=== PATIENT | female | born 1990 | race Caucasian/White ===

== ENCOUNTER 2021-11-10 14:13 | Emergency (ER) | payer SELFPAY ==
[2021-11-10 14:28] VITALS: BP 111/72; PULSE 87; RESP 16; TEMP 36.8; O2SAT 96; BMI 23.1
--- NOTE | 2021-11-10 14:46 | W.ED.FEMALGU ---
HPI - Female Genitourinary General: Chief complaint: OB/Uterine Contractions Stated complaint: positive preg test history of tubal Time Seen by Provider: 11/10/21 14:38 Source: patient Mode of arrival: ambulatory Limitations: no limitations History of Present Illness: HPI Narrative: Patient is a 31-year-old female who presents to ED today with a complaint of lower pelvic pains intermittently over the past 2 months. Patient states pain seems to always be minimally present with intermittent exacerbations. Pain seems to alternate between left and right sides. Patient states she had an abnormal period last month stating she only bled for 1.5 days. Patient states she was approximately a week late on her period this month. She states she took a test 2 days ago and it was positive. Patient began bleeding today. Patient has a history of a tubal ligation so was concerned for ectopic. No nausea, vomiting. Normal bowel movements. No urinary complaints. She has no complaints of vaginal discharge. Onset (ago): month(s) Consistency: intermittent Vaginal discharge: none Associated symptoms: Deny abdominal pain, headache(s), nausea or vaginal discharge Sexual activity: Yes Possible : at home test positive Review of Systems Const: Denies: fever(s), chills, body aches, fatigue or malaise Card: Denies: chest pain Resp: Denies: dyspnea GI: Denies: abdominal pain, nausea, vomiting or diarrhea : Reports: vaginal bleeding, irregular period, metrorrhagia and pelvic pain; Denies: flank pain, dysuria, hematuria, vaginal odor or vaginal discharge Musc: Denies: back pain Skin/Breast: Denies: rash Neuro: Denies: headache(s) or dizziness Physical Exam Const: COMMON NORMALS: no acute distress, average body habitus, patient oriented x3, no limitations, healthy appearing, alert and well nourished GENERAL APPEARANCE: cooperative Resp: COMMON NORMALS: normal respiratory effort and clear to auscultation bilaterally AUSCULTATION: clear to auscultation bilaterally Cardio: COMMON NORMALS: regular rate and regular rhythm RATE: regular rate RHYTHM: regular rhythm GI: COMMON NORMALS: Normal to inspection, nondistended, normoactive bowel sounds present, Soft to palpation, No hepatosplenomegaly present and no masses PALPATION: Yes Soft to palpation, Yes Tenderness to palpation present (GI) (mild pain to lower abdomen/pelvis) and Yes No hepatosplenomegaly present : COMMON NORMALS: Yes no CVA tenderness BLADDER/KIDNEY EXAM: Yes no CVA tenderness OB/EXTERNAL & SPECULUM: Deferred OB/external & speculum exam Back/Pelvis: COMMON NORMALS: no CVA tenderness Extremity: COMMON NORMALS: normal to inspection Neuro: COMMON NORMALS: patient oriented x3 SENSORIUM/ORIENTATION: Yes alert Skin: COMMON NORMALS: no rashes or lesions noted GENERAL SKIN EXAM: no rashes or lesions noted Course Vital Signs: Vital signs: Vital Signs Temperature 98.2 F 11/10/21 14:28 Pulse Rate 87 11/10/21 14:28 Respiratory Rate 16 11/10/21 14:28 Blood Pressure 111/72 11/10/21 14:28 Pulse Oximetry 96 11/10/21 14:28 MDM - Female MDM Narrative: Medical decision making narrative: Patient has a serum quant of <0.5. Remainder of labs normal. Her pelvic TV US is normal. At this time I would get her set up with PCP for further evaluation and possible referral to [facility] if necessary. Strict return to ED precautions verbally given to patient. Lab Data: Labs: Lab Results 11/10/21 11/10/21 14:55 14:55 WBC 8.0 10^3/uL 10^3/ uL (4.0-10.0) RBC 4.96 10^6/uL 10^6 /uL (4.1-5.3) Hgb 14.1 g/dL g/dL (11.5-15.3) Hct 42.3 % % (37.0-47.0) MCV 85.3 fl fl (81-99) MCH 28.4 pg pg (28.0-34.0) MCHC 33.3 g/dL g/dL (30.0-36.0) RDW 13.3 % % (12.1-15.1) Plt Count 291 10^3/cmm 10^3 /cmm (130-400) MPV 9.7 fL fL (7.4-10.4) Neut % (Auto) 73.0 % % Lymph % (Auto) 20.0 % % [place] % (Auto) 5.6 % % Eos % (Auto) 0.7 % % Baso % (Auto) 0.5 % % Neut # (Auto) 5.84 10^3/uL 10^3 /uL (1.8-7.7) Lymph # (Auto) 1.6 10^3/uL 10^3/ uL (0.8-4.8) [place] # (Auto) 0.5 10^3/uL 10^3/ uL (0.2-0.9) Eos # (Auto) 0.1 10^3/uL 10^3/ uL (0.0-0.8) Baso # (Auto) 0.0 10^3/uL 10^3/ uL (0.0-0.1) Nucleated RBC % (a uto) 0 % % Nucleated RBCs # 0.0 /100WBC /100W BC Sodium 136 mmol/L mmol/L (136-145) Potassium 3.7 mmol/L mmol/L (3.5-5.1) Chloride 102 mmol/L mmol/L (98-107) Carbon Dioxide 22 mmol/L mmol/L (22-29) Anion Gap 15.7 (5-19) BUN 8 mg/dL mg/dL (6-20) Creatinine 0.6 mg/dL mg/dL (0.5-0.9) GFR Calculation 118.2 mL/min mL/m in (90-130) Glucose 85 mg/dL mg/dL (65-115) Calculated Osmolal ity 280 mOsm/kg L mOs m/kg (285-295) Calcium 9.2 mg/dL mg/dL (8.5-10.5) Total Bilirubin 0.2 mg/dL mg/dL (0.15-1.2) AST 12 U/L U/L (0-32) ALT 9 U/L U/L (0-33) Alkaline Phosphata se 62 IU/L IU/L (35-105) Total Protein 6.8 g/dL g/dL (6.6-8.7) Albumin 4.6 g/dL g/dL (3.5-5.2) Globulin 2.2 g/dL g/dL (1.3-4.6) Ser , Day i-Qnt < 0.50 mIU/mL mIU /mL Imaging Data: US TV: Radiologist's impression: [id number] [address] Ultrasound Report Signed Patient: Magnolia Leggett Unit #: [id number] : 1990 Age/Sex: 31 / F ADM Date: 11/10/21 Loc: ER Room/Bed: Attending Dr: Ordering Provider/Ordering MD: Macrina Darling Date of Service: 11/10/21 Procedure(s): US transvaginal [id number] Accession Number(s): [id number] Report Number: [id number] WS: [id number] TRANSVAGINAL PELVIC ULTRASOUND HISTORY: pelvic pain, abnormal bleeding COMPARISON: None available. Uterus: 6.8 cm x 4.1 cm x 3.7 cm. Normal size retroverted uterus. Normal homogeneity throughout the myometrium. Cervix is closed. Endometrium: 0.4 cm. Normal homogeneity. No increased vascularity. No mass. Right ovary: 2.7 cm x 1.5 cm x 1.2 cm. Normal size and vascularity, no cystic or solid masses. Left ovary: 2.2 cm x 1.1 cm x 1.0 cm. Normal size and vascularity, no cystic or solid masses. Physiologic free fluid. US/US transvaginal [id number] IMPRESSION: 1. Normal transvaginal pelvic ultrasound. 2. Patient states recent positive home test. If there is a positive test ectopic is not excluded. Dictated By: Lyric Masterson DO Signed By: Lyric Masterson DO Signed Date/Time: 11/10/21 1600 DD/ 1558 Discharge Plan Discharge Patient Disposition: Home Clinical Impression: Pelvic pain Condition: Stable Discharge Orders: Discharge ED (Routine); Ordered 11/10/21 Ordered By: Macrina Darling Patient Instructions: Pelvic Pain in Women (ED), Pelvic Pain (ED) Coding Level of Care Code ED Automatic Presser for Chg Fwd Exam Detailed
[2021-11-10 15:04] LABS: Basophils % 0.5 %; Eosinophils # 0.1 10^3/uL (0.0-0.8); Eosinophils % 0.7 %; Hematocrit 42.3 % (37.0-47.0); Hemoglobin 14.1 g/dL (11.5-15.3); Lymphocytes # 1.6 10^3/uL (0.8-4.8); Mean Corpuscular HGB Conc 33.3 g/dL (30.0-36.0); Mean Corpuscular Hemoglobin 28.4 pg (28.0-34.0); Mean Corpuscular Volume 85.3 fl (81-99); Mean Platelet Volume 9.7 fL (7.4-10.4); Monocytes # 0.5 10^3/uL (0.2-0.9); Monocytes % 5.6 %; Neutrophils # 5.84 10^3/uL (1.8-7.7); Nucleated Red Blood Cells % 0 %; Platelet Count 291 10^3/cmm (130-400); Red Blood Count 4.96 10^6/uL (4.1-5.3); Red Cell Distribution Width 13.3 % (12.1-15.1)
--- NOTE | 2021-11-10 15:27 | US_ITS ---
WS: [id number] TRANSVAGINAL PELVIC ULTRASOUND HISTORY: pelvic pain, abnormal bleeding COMPARISON: None available. Uterus: 6.8 cm x 4.1 cm x 3.7 cm. Normal size retroverted uterus. Normal homogeneity throughout the m yometrium. Cervix is closed. Endometrium: 0.4 cm. Normal homogeneity. No increased vascularity. No mass. Right ovary: 2.7 cm x 1.5 cm x 1.2 cm. Normal size and vascularity, no cystic or solid masses. Left ovary: 2.2 cm x 1.1 cm x 1.0 cm. Normal size and vascularity, no cystic or solid masses. Physiologic free fluid. US/US transvaginal [id number] IMPRESSION: 1. Normal transvaginal pelvic ultrasound. 2. Patient states recent positive home test. If there is a positive test ectopic is not excluded.
[2021-11-10 15:36] LABS: Alanine Aminotransferase 9 U/L (0-33); Albumin Level 4.6 g/dL (3.5-5.2); Alkaline Phosphatase 62 IU/L (35-105); Anion Gap 15.7 (5-19); Aspartate Amino Transferase 12 U/L (0-32); Blood Urea Nitrogen 8 mg/dL (6-20); Calcium 9.2 mg/dL (8.5-10.5); Carbon Dioxide 22 mmol/L (22-29); Chloride 102 mmol/L (98-107); Globulin 2.2 g/dL (1.3-4.6); Glomerular Filtration Rate 118.2 mL/min (90-130); Glucose 85 mg/dL (65-115); Osmolality Calculated 280 mOsm/kg (285-295); Potassium 3.7 mmol/L (3.5-5.1); Sodium 136 mmol/L (136-145); Total Bilirubin 0.2 mg/dL (0.15-1.2); Total Protein 6.8 g/dL (6.6-8.7)
[2021-11-10 15:40] LABS: HCG Quantitative < 0.50 mIU/mL
[2021-11-10] MEDS: sodium chloride 0.9% 1,000 ML 999 ML IV (16:07)
--- NOTE | 2021-11-16 11:24 | DCPLANNER ---
Addendum entered by Rosa Davidson 11/16/21 11:32: Patient called director of casework back, she stated that she has a primary care physician. Original Note: dairy farm manager had message to speak with patient about getting a primary care physician. dairy farm manager called phone number [phone], unable to speak with patient or leave a voicemail for patient at this time.
== END 2021-11-10 17:30 | disposition home or self-care (01) ==
PROVIDERS: Emergency Provider Physician Assistant
DX: R10.2 Pelvic and perineal pain (principal)
CPT/HCPCS: 76830; 80053; 84702; 85025; 96360; 99283; J7030

== ENCOUNTER → 2022-09-24 10:02 | Outpatient (BNVA) | payer OTHER, SELFPAY | PROVIDERS: Referring Provider Nurse Practitioner; Visit Provider Student in an Organized Health Care Education/Training Program | DX: S60.221A Contusion of right hand, initial encounter (principal); S60.021A Contusion of right index finger without damage to nail, initial encounter; W30.89XA Contact with other specified agricultural machinery, initial encounter; S60.031A Contusion of right middle finger without damage to nail, initial encounter | CPT/HCPCS: 73130 ==

== ENCOUNTER 2022-11-30 08:27 | Outpatient (CLI) | payer OTHER, SELFPAY ==
--- NOTE | 2022-11-30 08:45 | MR_ITS ---
WS: [id number] MRI RIGHT HAND without CONTRAST. COMPARISON: RIGHT hand radiograph 09/24/2022 Multiplanar, multisequence imaging is performed without contrast. No marrow edema or fracture. Normal interphalangeal joint space alignment. The extensor and flexor te ndon sheaths appear normal. No displacement of the flor system. No soft tissue abnormalities. No er osions. MR/MR hand RT wo con* [id number] IMPRESSION: Unremarkable MRI RIGHT hand.
== END 2022-11-30 08:28 | disposition home or self-care (01) ==
PROVIDERS: Visit Provider Student in an Organized Health Care Education/Training Program
DX: S60.00XA Contusion of unspecified finger without damage to nail, initial encounter (principal); S60.221A Contusion of right hand, initial encounter; X58.XXXA Exposure to other specified factors, initial encounter
CPT/HCPCS: 73218

== ENCOUNTER 2024-10-06 12:36 | Observation (INO) | payer BC, MEDICAID, SELFPAY ==
[2024-10-06] VITALS (17 sets, daily range): BP systolic 100–125; BP diastolic 64–88; PULSE 77–109; RESP 14–25; TEMP 36.7; O2SAT 93–100; BMI 27.9; BMI 25.3
--- NOTE | 2024-10-06 12:55 | XRR_ITS ---
PROCEDURE INFORMATION: Exam: XR Chest Exam date and time: 10/06/2024 1:03 PM Age: 34 years old Clinical indication: Cough and dyspnea; Additional info: Dyspnea/cough TECHNIQUE: Imaging protocol: Radiologic exam of the chest. Views: 1 view. COMPARISON: No relevant prior studies available. FINDINGS: Lungs: Questionable azygos lobe. No consolidations. Pleural spaces: Unremarkable. No pleural effusion. No pneumothorax. Heart/Mediastinum: Unremarkable. No cardiomegaly. Bones/joints: Unremarkable. XR/XR chest 1V portable [id number] IMPRESSION: No acute findings.
--- NOTE | 2024-10-06 12:56 | ECG_ITS ---
[facility] Test Date: 2024-10-06 Pat Name: Magnolia Moss Department: Room: Gender: Female Tube Cleaner: : 1990 Requested By: Haider Xavier Order Number: [id number] Bobby MD: Dwight Hastings M.D. Measurements Intervals [place] Rate: 114 P: 80 IL: 159 QRS: 72 QRSD: 81 T: 66 QT: 323 QTc: 446 Interpretive Statements SINUS TACHYCARDIA POSSIBLE LEFT ATRIAL ENLARGEMENT [-0.1mV P-WAVE IN V1/V2] POSSIBLE RIGHT VENTRICULAR CONDUCTION DELAY [RSR (QR) IN V1/V2] NONSPECIFIC T-WAVE ABNORMALITY No previous ECG available for comparison Electronically Signed On 10-06-2024 15:09:14 HOE RUNNER by Dwight Hastings M.D. [email or web address]
--- NOTE | 2024-10-06 13:13 | CT_ITS ---
WS: [id number] CT scan of the abdomen and pelvis with IV contrast. Additional two-dimensional coronal and sagittal reconstruction was performed. 10/06/2024 Clinical Data: abd pain Comparison: None. DLP: 457.[address] scans at [facility] use at least one of these dose optimization techniques: automated e xposure control; mA and/or kV adjustment per patient size (includes targeted exams where dose is matc hed to clinical indication); or iterative reconstruction. Findings: The lower lungs show no nodules, masses or effusions. The liver, gallbladder, adrenal glands and pancreas are normal. There is minimal fluid adjacent to th e spleen but no intrasplenic laceration or mass is seen. On the posterior lateral aspect of the right kidney there is an area of decreased perfusion which could be result of an injury or even a minimal infection. The kidneys show equal bilateral contrast excretion with no cyst or masses. The abdominal aorta is normal in size. No appendicitis or diverticulitis is seen. The stomach, small bowel and colon are normal. The bladder is unremarkable. The uterus is normal. No inguinal hernia is seen. The bones of the lower thorax, lumbar spine, pelvis, and hips are normal. CT/CT abdomen pelvis w con* [id number] Impression: 1. Minimal perisplenic fluid which may be result of prior minimal injury. 2. Small area of decreased perfusion posterior lateral aspect of the right kidn ey which could be from a injury or minimal infection.
--- NOTE | 2024-10-06 13:17 | W.ED.ABDPA2 ---
HPI - Abdominal Pain General: Chief Complaint: Abdominal Pain Stated Complaint: chest pain Time Seen by Provider: 10/06/24 12:58 History of Present Illness: 34-year-old female presents emergency room complaining epigastric and left upper quadrant abdominal pain. Patient has had increasing pain for last 3 days worse when she takes a deep breath. She drinks 5-6 beers per day and will occasionally drink hard liquor. She denies any hematuria dysuria urgency or frequency. No history of any nephrolithiasis. No actual flank pain. She denies fever sweats or chills. States this pain feels similar to what she has had before with pancreatitis. She states she frequently vomits mucousy maroonish type fluids. She has not had any coffee-ground emesis. She has never had any known upper GI bleeds or needed transfusion. Associated Symptoms: Reports nausea and vomiting; Denies chills, dysuria and fever(s) Related Data Home Medications Medication Instructions Recorded Confirmed ascorbic acid (vitamin C) 1,000 mg 1,000 mg PO DAILY 10/06/24 10/06/24 tablet (Vitamin C) ibuprofen 125 mg-acetaminophen 250 2 tab PO TID PRN Pain 10/06/24 10/06/24 mg tablet (Advil Dual Action) multivitamin 1 tab PO DAILY 10/06/24 10/06/24 Allergies Allergy/AdvReac Type Severity Reaction Status Date / Time No Known Allergies Allergy Verified 10/06/24 12:50 Review of Systems Const: Denies: fever(s) or chills Card: Denies: chest pain Resp: Denies: dyspnea GI: Reports: abdominal pain, nausea and vomiting : Denies: dysuria, urinary frequency or urinary urgency Musc: Denies: neck pain or back pain Skin/Breast: Denies: rash [facility] PFSH: Medical History Contusion of right hand including fingers Physical Exam Const: GENERAL APPEARANCE: cooperative ORIENTATION/CONSCIOUSNESS: Yes awake, Yes oriented to person, Yes oriented to place and Yes oriented to time HENMT: COMMON NORMALS: normocephalic, atraumatic and hearing grossly normal bilaterally HEAD & SCALP: normocephalic and atraumatic Resp: COMMON NORMALS: normal respiratory effort, No retractions, No use of accessory muscles and clear to auscultation bilaterally AUSCULTATION: clear to auscultation bilaterally Cardio: COMMON NORMALS: regular rate, regular rhythm and No murmurs present (Cardio) RATE: regular rate RHYTHM: regular rhythm GI: AUSCULTATION: Yes normoactive bowel sounds PALPATION: Yes Tenderness to palpation present (GI) Details: LUQ and No Guarding due to palpation present (GI) RECTAL EXAM: heme negative stool : COMMON NORMALS: Yes no CVA tenderness BLADDER/KIDNEY EXAM: Yes no CVA tenderness Back/Pelvis: COMMON NORMALS: no CVA tenderness Extremity: COMMON NORMALS: normal to inspection, capillary refill normal, no clubbing, cyanosis or edema, no calf tenderness and no pedal edema Neuro: SENSORIUM/ORIENTATION: Yes oriented to person, Yes oriented to place and Yes oriented to time Skin: COMMON NORMALS: no rashes or lesions noted GENERAL SKIN EXAM: no rashes or lesions noted Course Vital Signs: Vital signs: Vital Signs Temperature 98.1 F 10/06/24 12:50 Pulse Rate 87 10/06/24 16:00 Respiratory Rate 20 H 10/06/24 16:16 Blood Pressure 100/64 10/06/24 16:00 Pulse Oximetry 99 10/06/24 16:16 Oxygen Delivery Me thod Room Air 10/06/24 16:00 MDM - Abdominal Pain Medical Decision Making Patient has left upper quadrant abdominal pain lipase slightly elevated. Suspect she has a alcoholic pancreatitis as well as alcoholic gastritis she is reporting vomiting maroonish colored fluid although her BUN is normal. Rectal exam stool was Hemoccult negative. Medical Records I reviewed the patient's medical records. Lab Data I reviewed the patient's lab results. 10/06/24 13:19 10/06/24 14:05 Labs/Radiology: Radiology Impressions Chest X-Ray 10/06/24 12:55 IMPRESSION: No acute findings. Abdomen/Pelvis CT 10/06/24 13:13 Impression: 1. Minimal perisplenic fluid which may be result of prior minimal injury. 2. Small area of decreased perfusion posterior lateral aspect of the right kidney which could be from a injury or minimal infection. Laboratory Results WBC 11.50 10^3/uL (3.29-11.43) H 10/06/24 13:19 RBC 4.43 10^6/uL (3.85-5.65) 10/06/24 13:19 Hgb 13.70 g/dL (11.27-16.99) 10/06/24 13:19 Hct 41.5 % (36-47) 10/06/24 13:19 MCV 93.7 fl (85-98) 10/06/24 13:19 MCH 30.9 pg (27-33) 10/06/24 13:19 MCHC 33.0 g/dL (30-55) 10/06/24 13:19 RDW 12.4 % (12.1-15.1) 10/06/24 13:19 Plt Count 235 10^3/cmm (157-399) 10/06/24 13:19 MPV 9.8 fL (7.4-10.4) 10/06/24 13:19 Neut % (Auto) 83.1 % 10/06/24 13:19 Lymph % (Auto) 11.5 % 10/06/24 13:19 [place] % (Auto) 4.2 % 10/06/24 13:19 Eos % (Auto) 0.5 % 10/06/24 13:19 Baso % (Auto) 0.3 % 10/06/24 13:19 Neut # (Auto) 9.56 10^3/uL (1.8-7.7) H 10/06/24 13:19 Lymph # (Auto) 1.3 10^3/uL (0.8-4.8) 10/06/24 13:19 [place] # (Auto) 0.5 10^3/uL (0.2-0.9) 10/06/24 13:19 Eos # (Auto) 0.1 10^3/uL (0.0-0.8) 10/06/24 13:19 Baso # (Auto) 0.0 10^3/uL (0.0-0.1) 10/06/24 13:19 Nucleated RBC % (auto) 0 % 10/06/24 13:19 Nucleated RBCs # 0.0 /100WBC 10/06/24 13:19 PT 12.80 SECONDS (12.1-14.9) 10/06/24 13:19 INR 0.93 (0.8-1.2) 10/06/24 13:19 APTT 27.3 SECONDS (23.9-36.7) 10/06/24 13:19 Sodium 137 mmol/L (136-145) 10/06/24 14:05 Potassium 3.4 mmol/L (3.5-5.1) L 10/06/24 14:05 Chloride 101 mmol/L (98-107) 10/06/24 14:05 Carbon Dioxide 23 mmol/L (22-29) 10/06/24 14:05 Anion Gap 16.4 (5-19) 10/06/24 14:05 BUN 3 mg/dL (6-20) L 10/06/24 14:05 Creatinine 0.4 mg/dL (0.5-0.9) L 10/06/24 14:05 GFR Calculation 185.0 mL/min (90-130) H 10/06/24 14:05 Glucose 101 mg/dL (65-115) 10/06/24 14:05 Calculated Osmolality 281 mOsm/kg (285-295) L 10/06/24 14:05 Calcium 8.4 mg/dL (8.5-10.5) L 10/06/24 14:05 Total Bilirubin 0.2 mg/dL (0.15-1.2) 10/06/24 14:05 AST 12 U/L (0-32) 10/06/24 14:05 ALT 11 U/L (0-33) 10/06/24 14:05 Alkaline Phosphatase 82 U/L (35-105) 10/06/24 14:05 Total Protein 6.8 g/dL (6.6-8.7) 10/06/24 14:05 Albumin 4.1 g/dL (3.5-5.2) 10/06/24 14:05 Globulin 2.7 g/dL (1.3-4.6) 10/06/24 14:05 Lipase 79 U/L (13-60) H 10/06/24 14:05 Urine Color Yellow (Yellow) 10/06/24 15:18 Urine Appearance Clear (CLEAR) 10/06/24 15:18 Urine pH 7.5 (5-7) 10/06/24 15:18 Ur Specific [place] 1.043 (1.005-1.030) H 10/06/24 15:18 Urine Protein Negative (Negative) 10/06/24 15:18 Urine Glucose (UA) Negative (Normal) 10/06/24 15:18 Urine Ketones Negative (Negative) 10/06/24 15:18 Urine Blood Negative (Negative) 10/06/24 15:18 Urine Nitrate Negative (Negative) 10/06/24 15:18 Urine Bilirubin Negative (Negative) 10/06/24 15:18 Urine Urobilinogen 0.2 mg/dL (Negative) 10/06/24 15:18 Ur Leukocyte Esterase Negative (Negative) 10/06/24 15:18 Urine RBC 0-2 /hpf (0-2) 10/06/24 15:18 Urine WBC 0-5 /hpf (0-5) 10/06/24 15:18 Ur Squamous Epith Cells 0-5 /hpf (0-5) 10/06/24 15:18 Amorphous Sediment Not Reportable 10/06/24 15:18 Urine Bacteria None seen /hpf (NONE) 10/06/24 15:18 Hyaline Casts 0-4 /lpf H 10/06/24 15:18 All radiology interpretation(s) finalized by discharge Discharge Plan Discharge Patient Disposition: Placed in Observation Clinical Impression: Pancreatitis, Acute alcoholic gastritis Coding Level of Care Code ED Promotion Specialist for Ezekiel Swain
[2024-10-06 13:25] LABS: Basophils % 0.3 %; Eosinophils # 0.1 10^3/uL (0.0-0.8); Eosinophils % 0.5 %; Hematocrit 41.5 % (36-47); Lymphocytes # 1.3 10^3/uL (0.8-4.8); Lymphocytes % 11.5 %; Mean Corpuscular Hemoglobin 30.9 pg (27-33); Mean Corpuscular Volume 93.7 fl (85-98); Mean Platelet Volume 9.8 fL (7.4-10.4); Monocytes # 0.5 10^3/uL (0.2-0.9); Monocytes % 4.2 %; Neutrophils # 9.56 10^3/uL (1.8-7.7); Neutrophils % 83.1 %; Nucleated Red Blood Cells % 0 %; Platelet Count 235 10^3/cmm (157-399); Red Blood Count 4.43 10^6/uL (3.85-5.65); Red Cell Distribution Width 12.4 % (12.1-15.1)
[2024-10-06] MEDS: iohexol 350 mg/mL 500 mL Btl (per mL) IV (13:26)
[2024-10-06] MEDS: ondansetron 2 mg/ML SDV 2 mL 4 MG IVP (13:40)
[2024-10-06] MEDS: morphine 4 mg/mL SDV 1 mL IVP ×3 (13:40→19:48)
[2024-10-06] MEDS: pantoprazole 40 mg SDV 80 MG IVP (13:41)
[2024-10-06] MEDS: sodium chloride 0.9% 1,000 ML 999 ML IV (13:41)
[2024-10-06 13:42] LABS: INR 0.93 (0.8-1.2)
[2024-10-06 13:43] LABS: Partial Thromboplastin Time 27.3 SECONDS (23.9-36.7)
[2024-10-06 14:30] LABS: Alanine Aminotransferase 11 U/L (0-33); Albumin Level 4.1 g/dL (3.5-5.2); Alkaline Phosphatase 82 U/L (35-105); Anion Gap 16.4 (5-19); Aspartate Amino Transferase 12 U/L (0-32); Blood Urea Nitrogen 3 mg/dL (6-20); Calcium 8.4 mg/dL (8.5-10.5); Carbon Dioxide 23 mmol/L (22-29); Chloride 101 mmol/L (98-107); Creatinine Clr Calc Pharmacy 198.8822; Globulin 2.7 g/dL (1.3-4.6); Glucose 101 mg/dL (65-115); Lipase 79 U/L (13-60); Osmolality Calculated 281 mOsm/kg (285-295); Potassium 3.4 mmol/L (3.5-5.1); Sodium 137 mmol/L (136-145); Total Bilirubin 0.2 mg/dL (0.15-1.2); Total Protein 6.8 g/dL (6.6-8.7)
[2024-10-06 15:28] LABS: Bilirubin Urine Negative (Negative); Blood Urine Negative (Negative); Glucose Urine UA Negative (Normal); Ketones Urine Negative (Negative); Leukocyte Esterase Urine Negative (Negative); Nitrate Urine Negative (Negative); Protein Urine Negative (Negative); Urine Appearance Clear (CLEAR); Urine Color Yellow (Yellow); Urobilinogen Urine 0.2 mg/dL (Negative); pH Urine 7.5 (5-7)
[2024-10-06 15:31] LABS: Add Urine Microscopic? YES; Bacteria Urine None Seen /hpf; Hyaline Casts Urine 0-4 /lpf; RBC Urine 0-2 /hpf (0-2); Squamous Epithelial Cell Urine 0-5 /hpf (0-5); WBC Urine 0-5 /hpf (0-5)
[2024-10-06 15:35] LABS: Specific Gravity, Urine 1.043 (1.005-1.030)
--- NOTE | 2024-10-06 17:11 | CTR_ITS ---
PROCEDURE INFORMATION: Exam: CT Chest Without Contrast; Diagnostic Exam date and time: 10/06/2024 5:20 PM Age: 34 years old Clinical indication: Pain; Radiating; Additional info: Rule out contusion TECHNIQUE: Imaging protocol: Diagnostic computed tomography of the chest without contrast. Radiation optimization: All CT scans at this facility use at least one of these dose optimization techniques: automated exposure control; mA and/or kV adjustment per patient size (includes targeted exams where dose is matched to clinical indication); or iterative reconstruction. COMPARISON: CR XR chest 1V portable [id number] 10/06/2024 1:03 PM RADIATION DOSE METRICS: Total DLP (mGy-cm): 300.7 FINDINGS: Thyroid: No significant thyroid pathology. Lungs: No significant active pulmonary pathology. Pleural spaces: No pleural effusion. No pneumothorax. Heart: Unremarkable. No cardiomegaly. No pericardial effusion. Coronary arteries: No coronary artery calcification evident. Lymph nodes: No evidence of lymphadenopathy. Vasculature: Azygous variant is present extending through the right upper lobe. No evidence of thoracic aortic aneurysm. Pancreas: Incomplete imaging of the fat infiltration surrounding the pancreatic tail; see abdomen CT from earlier in the same day for further description. Bones/joints: No significant bony pathology. Soft tissues: Unremarkable. CT/CT chest wo con [id number] IMPRESSION: No acute thoracic traumatic pathology. See abdomen CT performed earlier on the same day for other findings.
--- NOTE | 2024-10-06 17:11 | CTR_ITS ---
PROCEDURE INFORMATION: Exam: CT Lumbar Spine Without Contrast Exam date and time: 10/06/2024 5:20 PM Age: 34 years old Clinical indication: Low back pain; Additional info: Back injury TECHNIQUE: Imaging protocol: Computed tomography of the lumbar spine without contrast. Radiation optimization: All CT scans at this facility use at least one of these dose optimization techniques: automated exposure control; mA and/or kV adjustment per patient size (includes targeted exams where dose is matched to clinical indication); or iterative reconstruction. COMPARISON: CT thoracic spin wo con* [id number] 10/06/2024 5:20 PM RADIATION DOSE METRICS: Total DLP (mGy-cm): 554.5 FINDINGS: Bones/joints: Alignment within normal limits. No acute fracture or dislocation. Vertebral body and intervertebral disc heights are maintained. Soft tissues: Unremarkable. Other findings: Incomplete imaging of the fat infiltration abutting the pancreatic tail; see abdomen CT performed the same day for further description. CT/CT lumbar spine wo con* [id number] IMPRESSION: No acute lumbar spine pathology.
--- NOTE | 2024-10-06 17:11 | CTR_ITS ---
PROCEDURE INFORMATION: Exam: CT Thoracic Spine Without Contrast Exam date and time: 10/06/2024 5:20 PM Age: 34 years old Clinical indication: Pain in thoracic spine; Other: All over; Additional info: Back injury TECHNIQUE: Imaging protocol: Computed tomography of the thoracic spine without contrast. Radiation optimization: All CT scans at this facility use at least one of these dose optimization techniques: automated exposure control; mA and/or kV adjustment per patient size (includes targeted exams where dose is matched to clinical indication); or iterative reconstruction. COMPARISON: CT chest wo con [id number] 10/06/2024 5:20 PM RADIATION DOSE METRICS: Total DLP (mGy-cm): 621.6 FINDINGS: Bones/joints: Minimal degenerative change of the thoracic spine. Mild dextrocurvature mid to upper thoracic spine; alignment otherwise unremarkable. No acute fracture or dislocation. Soft tissues: Unremarkable. Pancreas: Incomplete imaging of fat infiltration surrounding pancreatic tail; see CT abdomen performed the same day for further description. Other findings: See accompanying chest CT for description other thoracic anatomy. CT/CT thoracic spin wo con* [id number] IMPRESSION: No acute traumatic pathology of the thoracic spine.
--- NOTE | 2024-10-06 17:13 | P.HP_ITS ---
Providers/Chief Complaint 2 Admitting Physician: Martinez Rahman MD Chief Complaint: chest pain History of Present Illness Magnolia Moss is a 34 year old female with past medical history of alcoholic pancreatitis around 5 years ago, frequent alcohol consumption with beer, occasionally hard liquor with whiskey presents to the ER today because of epigastric and left upper abdomen pain which started around 3 to 4 days ago but got worse while she was working in morning today. She also gives history of occasional episodes of nausea and vomiting which she thinks is black or blood- tinged. Complains of mild nausea right now. Denies any melena. Rectal examination in the ER was negative for occult blood. Medicine was consulted with concerns for possible pancreatitis. CT abdomen pelvis with contrast were done in the ER which was consistent with possible perisplenic fluid concerning for recent injury, decreased contrast uptake in the right kidney with concerns for recent injury. Patient does give history of getting kicked by an animal around 2 weeks ago while working. She states she got kicked in the back and after that she was pushed against a water pipe hitting her stomach since then she has been having occasional abdominal pain. Review of Systems 2 General: Reports: 10 or more systems reviewed and unremarkable except in HPI and below Const: Denies: fever(s), chills, body aches, change in appetite, change in weight, malaise, night sweats, diaphoresis, change in sleep pattern, daytime sleepiness or snoring Eyes: Denies: change in vision, blurry vision, photophobia, eye discomfort or eye discharge ENMT: Denies: throat pain, enlarged tonsils, hoarseness, mouth pain, oral sores, dry mouth, tinnitus, nasal congestion or post nasal drip Card: Denies: chest pain, palpitations, irregular heart rhythm, edema, swelling of feet/ankles, lightheadedness, syncope, pre-syncope, dyspnea on exertion, orthopnea, leg pain with exertion or acrocyanosis Resp: Denies: dyspnea, productive cough, non-productive cough, wheezing, stridor, pain on inspiration, change in phlegm color, hemoptysis or chest congestion GI: Denies: abdominal pain, nausea, vomiting, hematemesis, coffee ground emesis, dysphagia, heartburn, diarrhea, constipation, bloating, GI cramping, change in bowel habits, pain on defecation, hematochezia or melena : Denies: flank pain, dysuria, urinary frequency, urinary urgency, urinary hesitancy, nocturia or hematuria Musc: Denies: neck pain, back pain, extremity pain, joint pain, joint swelling, joint redness, joint stiffness or limited range of motion Neuro: Denies: headache(s), numbness in extremities, weakness in extremities, sensory changes, lack of coordination, difficulty walking, frequent falls, dizziness, vertigo, confusion, Slurred speech present, difficulty communicating thoughts or seizure-like activity Psych: Denies: anxiety, depression, mood swings, panic attacks, hopelessness or irritability Endo: Denies: polyuria, polydipsia, tired all the time, cold intolerance, excessive sweating, flushing or heat intolerance Campbell/Lymph: Denies: easy bruising or easy bleeding All/Imm: Denies: tongue swelling, facial swelling or acute wheezing Medications/Allergies Home Medications Medication Instructions Recorded Confirmed Last Taken Type ascorbic acid (vitamin C) 1,000 mg 1,000 mg PO DAILY 10/06/24 10/06/24 Unknown History tablet (Vitamin C) ibuprofen 125 mg-acetaminophen 250 2 tab PO TID PRN Pain 10/06/24 10/06/24 10/06/24 History mg tablet (Advil Dual Action) multivitamin 1 tab PO DAILY 10/06/24 10/06/24 Unknown History Allergies Allergy/AdvReac Type Severity Reaction Status Date / Time No Known Allergies Allergy Verified 10/06/24 12:50 PFSH Acute 2 PFSH: Medical History (Updated 10/06/24 @ 17:17 by Martinez Rahman MD) Alcohol use Pancreatitis Contusion of right hand including fingers Vitals/I&O/Wt Last Vital Signs Temp 98.1 F 10/06/24 12:50 Pulse 87 10/06/24 16:00 Resp 20 H 10/06/24 16:16 BP 100/64 10/06/24 16:00 Pulse Ox 99 10/06/24 16:16 O2 Del Method Room Air 10/06/24 16:00 10/06/24 10/06/24 10/06/24 06:59 14:59 22:59 Intake Total 0 / 0 Balance 0 / 0 Weight last 48 hrs Weight 73.936 kg Physical Exam 2 Narrative: General: In mild distress because of abdominal pain, AOx3 HEENT: PERRLA, pupils bilaterally equal and reactive Chest: Normal vesicular breath sounds, no added sounds, equal good air entry bilaterally CVS: S1-S2 regular, no murmurs, no tachycardia, no gallops, no rubs Abdomen: Soft, generalized tenderness, guarding all over her abdomen more so in the left upper quadrant, no organomegaly, bowel sounds present Neuro: No focal deficits, no facial deformity, AO x3, power 5/5 in all limbs Data 10/07/24 05:43 10/07/24 05:43 A&P Assessment and plan (1) Abdominal pain: Most likely in setting of alcoholic gastritis. Cannot rule out pancreatitis. Patient has a history of pancreatitis in the past. Lipase level mildly elevated to 79. CT abdomen pelvis with contrast negative for pancreatitis. Could be in setting of recent injury at work after being kicked by an animal and being crushed against a pipe into her belly. Check lactate. (2) Acute alcoholic gastritis: Clear liquid diet. Advance diet very gradually. Protonix 40 mg IV twice daily. Zofran as needed. IV fluids normal saline at 75 cc/h. (3) Pancreatitis: On review treatment as above. Serial abdominal examination. Morphine 2 mg every 4 hours as needed for pain control (4) Alcohol use: [facility] protocol. Check urine drug screen, alcohol level. Banana bag. Thiamine and folic acid. (5) Back injury: Gives recent history of recently kicked in the back while working by an animal and being crushed with a pipe into her belly. Check CT thoracolumbar spine without contrast, CT chest to rule out contusion, rib fracture or spinal injury. CT on pelvis in the ER is concerning for mild perisplenic fluid and possible right kidney injury. Surgery consulted. Plan Cough: Remains on room air. Does have mild leukocytosis. Chest x-ray negative for consolidation. Viral panel sent from the ER. CT chest as above. Full code Protonix OPD prophylaxis Heparin 5000 every 12 hourly for DVT prophylaxis N.p.o. till cleared from surgery. After that clear liquid diet. Attestations 2 Medical Necessity Statement*: Admission under observation for management of abdominal pain in setting of possible alcoholic gastritis while abdominal injury is ruled out after recent crush injury Diagnoses Abdominal pain R10.9 Acute alcoholic gastritis K29.20 Pancreatitis K85.90 Alcohol use F10.90 Back injury S39.92XA
[2024-10-06 17:22] LABS: Covid PCR NEGATIVE (Negative); Influenza A NEGATIVE (Negative); Influenza B NEGATIVE (Negative); Respiratory Syncytial Virus Ce NEGATIVE (Negative)
[2024-10-06] MEDS: pantoprazole 40 mg SDV IVP (17:38)
[2024-10-06] MEDS: folic acid 1 MG, multivitamin inj 10 ML, thiamine 100 MG in sodium chloride 0.9% 1,000 ML 252.8 MG IV (17:38)
[2024-10-06 18:10] LABS: Amphetamines Screen Urine Negative (Negative); Barbiturates Screen Urine Negative (Negative); Benzodiazepines Screen Urine Negative (Negative); Cocaine Screen Urine Negative (Negative); Opiate Screen Urine Positive (Negative); PCP Screen Urine Negative (Negative); THC Screen Urine Negative (Negative)
[2024-10-06] MEDS: HYDROmorphone 1 mg/mL INJ 1 mL IVP (18:23)
--- NOTE | 2024-10-06 18:28 | P.CONIM_ITS ---
Providers/Reason For Consult 2 Consulting Physician/Specialty*: General Surgery Reason for Consult*: Possible trauma of the abdomen Attending Physician: Martinez Rahman MD History of Present Illness History of Present Illness Magnolia Moss is a 34 year old female who presents to the hospital with abdominal pain in the left upper quadrant and history of being kicked by a cow in the back about a week ago. Patient also has a extensive history of alcoholism, has been admitted in the past with alcoholic gastritis and is also complaining of some nausea and vomiting. I was consulted to rule out any other causes of intra-abdominal pathology due to the remote history of trauma. Per patient report her pain is mostly in the left upper quadrant and left flank. Review of Systems 2 General: Reports: 10 or more systems reviewed and unremarkable except in HPI and below Medications/Allergies Home Medications Medication Instructions Recorded Confirmed Last Taken Type ascorbic acid (vitamin C) 1,000 mg 1,000 mg PO DAILY 10/06/24 10/06/24 Unknown History tablet (Vitamin C) ibuprofen 125 mg-acetaminophen 250 2 tab PO TID PRN Pain 10/06/24 10/06/24 10/06/24 History mg tablet (Advil Dual Action) multivitamin 1 tab PO DAILY 10/06/24 10/06/24 Unknown History Allergies Allergy/AdvReac Type Severity Reaction Status Date / Time No Known Allergies Allergy Verified 10/06/24 12:50 Current Medications Generic Name Dose Route Start Last Admin Trade Name Freq PRN Reason Stop Dose Admin Folic Acid 1 mg/ Multivitamins 1,011.2 mls @ 252.8 mls/hr 10/06/24 17:30 10/06/24 17:38 10 ml/ Thiamine HCl 100 mg/ IV 10/06/24 21:29 252.8 mls/hr Sodium Chloride ONCE ONE Administration Pantoprazole Sodium 40 mg 10/06/24 17:15 10/06/24 17:38 Pantoprazole 40 Mg Sdv IVP 40 mg Q12H ELEONORA Administration PFSH Acute 2 PFSH: Medical History (Updated 10/06/24 @ 17:17 by Martinez Rahman MD) Alcohol use Pancreatitis Contusion of right hand including fingers Vitals/I&O/Wt Last Vital Signs Temp 98.1 F 10/06/24 12:50 Pulse 86 10/06/24 18:00 Resp 20 H 10/06/24 18:23 BP 107/64 10/06/24 18:00 Pulse Ox 99 10/06/24 18:23 O2 Del Method Room Air 10/06/24 16:00 10/06/24 10/06/24 10/06/24 06:59 14:59 22:59 Intake Total 0 / 0 1000 / 1000 Balance 0 / 0 1000 / 1000 Weight last 48 hrs Weight 163 lb Physical Exam 2 Narrative: General : Patient is well developed , no acute distress, oriented x3 Head : Normal cephalic, a-traumatic. Nose : Mucous membranes are without erythema. Lungs : Equal chest rise bilaterally, no use of accessory muscles, trachea is midline. CV : Rate and rhythm are normal. Abdomen : Soft, there is tenderness in the left upper quadrant but patient can be easily distracted and with the palpation 9 5 very minimal tenderness. Extremities : No edema. Upper extremities are normal bilaterally. Back : non-tender to palpation, no CVA tenderness. Data 10/06/24 13:19 10/06/24 14:05 A&P Assessment and plan (1) Pancreatitis: (2) Acute alcoholic gastritis: (3) Abdominal pain: Plan After complete history physical examination revealed available clinical data following is my assessment. Patient symptoms are unlikely to be caused by trauma. Acting probably the etiology of her symptoms may be an alcoholic gastritis versus an early pancreatitis. Imaging findings with minimal amount of fluid in the perisplenic area may be consistent with the history of trauma but there is no active trauma the moment at the level of the splenic looks well- perfused there is no indirect signs of trauma in the rest of the abdomen, the small bowel appeared well-perfused and patient has been tolerating diet well. There are some small changes in the right kidney that I do not think are related with current admission. At the moment there is no need for any additional intervention from the general surgery standpoint patient can continue management per medical team. Coding Level of Care Code Acute Code for [facility] Diagnoses Pancreatitis K85.90 Acute alcoholic gastritis K29.20 Abdominal pain R10.9
[2024-10-06 18:55] LABS: HCG, Serum Qual Negative (Negative)
[2024-10-06 18:58] LABS: Lactic Sepsis W/Reflex 1.3 mmol/L (0.5-2.2)
[2024-10-06 19:17] LABS: Procalcitonin 0.04 ng/mL (0-0.5); Thyroid Stimulating Hormone 2.93 uIU/mL (0.27-4.20); Vitamin B12 266 pg/mL (232-1245)
[2024-10-06] MEDS: ondansetron 2 mg/ML SDV 2 mL 8 MG IVP (19:23)
[2024-10-06 19:28] LABS: Iron 17 ug/dL (37-145); Percent Saturation 5.3 % (20-50); Total Iron Binding Capacity 316 mcg/dl; Unsaturated Iron Binding 299 ug/dL (112-347)
[2024-10-06] MEDS: heparin 5,000 unit/mL INJ 1 mL 5000 UNIT SUBCUT (20:57)
[2024-10-06] MEDS: sodium chloride 0.9% 1,000 ML 75 ML IV (20:58)
[2024-10-06 21:07] LABS: Alcohol Level 12 mg/dL (0-10)
[2024-10-06] MEDS: morphine 4 mg/mL SDV 1 mL 2 MG IVP (23:55)
[2024-10-07] VITALS (14 sets, daily range): BP systolic 110–126; BP diastolic 66–77; PULSE 67–91; RESP 15–18; TEMP 36.4–37.6; O2SAT 94–98; BMI 25.3
[2024-10-07] MEDS: pantoprazole 40 mg SDV IVP ×2 (05:15→16:06)
[2024-10-07] MEDS: morphine 4 mg/mL SDV 1 mL 2 MG IVP ×3 (05:19→14:21)
[2024-10-07 05:59] LABS: Basophils % 0.4 %; Eosinophils # 0.1 10^3/uL (0.0-0.8); Eosinophils % 1.2 %; Hematocrit 35.7 % (36-47); Lymphocytes # 1.4 10^3/uL (0.8-4.8); Lymphocytes % 20.5 %; Mean Corpuscular HGB Conc 32.5 g/dL (30-55); Mean Corpuscular Hemoglobin 31.1 pg (27-33); Mean Corpuscular Volume 95.7 fl (85-98); Mean Platelet Volume 9.8 fL (7.4-10.4); Monocytes # 0.5 10^3/uL (0.2-0.9); Monocytes % 7.5 %; Neutrophils # 4.86 10^3/uL (1.8-7.7); Neutrophils % 70.1 %; Nucleated Red Blood Cells % 0 %; Platelet Count 176 10^3/cmm (157-399); Red Blood Count 3.73 10^6/uL (3.85-5.65); Red Cell Distribution Width 12.4 % (12.1-15.1); White Blood Count 6.93 10^3/uL (3.29-11.43)
[2024-10-07 06:20] LABS: Estmated Average Glucose 85; Hemoglobin A1C 4.6 % (4.0-6.0)
[2024-10-07 06:26] LABS: Alanine Aminotransferase 9 U/L (0-33); Albumin Level 3.4 g/dL (3.5-5.2); Alkaline Phosphatase 70 U/L (35-105); Anion Gap 14.5 (5-19); Aspartate Amino Transferase 10 U/L (0-32); Blood Urea Nitrogen 5 mg/dL (6-20); Calcium 8.2 mg/dL (8.5-10.5); Carbon Dioxide 22 mmol/L (22-29); Chloride 104 mmol/L (98-107); Chol HDL Ratio 3.02 mg/dL (0.0-4.40); Cholesterol 139 mg/dL (0-200); Creatinine Clr Calc Pharmacy 190.0337; Globulin 2.4 g/dL (1.3-4.6); Glucose 93 mg/dL (65-115); HDL Cholesterol 46 mg/dL (60-100); LDL Cholesterol Calculated 44 mg/dL (50-129); LDL HDL Ratio 0.96 RATIO (0.00-3.22); Magnesium 1.7 mg/dL (1.7-2.3); Osmolality Calculated 281 mOsm/kg (285-295); Phosphorus 3.1 mg/dL (2.5-4.5); Potassium 3.5 mmol/L (3.5-5.1); Sodium 137 mmol/L (136-145); Total Bilirubin 0.5 mg/dL (0.15-1.2); Total Protein 5.8 g/dL (6.6-8.7); Triglycerides 244 mg/dL (0-150)
[2024-10-07 06:30] LABS: Procalcitonin 0.05 ng/mL (0-0.5)
[2024-10-07 06:44] LABS: Folate Level 16.8 ng/mL (4.8-37.3)
[2024-10-07] MEDS: folic acid 1 mg Tablet PO (08:40)
[2024-10-07] MEDS: thiamine 100 mg Tablet PO (08:40)
[2024-10-07] MEDS: multivitamin therapeutic Tablet 1 TAB PO (08:40)
[2024-10-07] MEDS: heparin 5,000 unit/mL INJ 1 mL 5000 UNIT SUBCUT ×2 (08:40→21:31)
[2024-10-07] MEDS: sodium chloride 0.9% 1,000 ML 75 ML IV ×2 (09:28→22:44)
--- NOTE | 2024-10-07 10:48 | PC.CHAP ---
Pastoral Care Encounter/Spiritual Assessment Type of Contact [] Declined carpenter streetcar visit [] Patient/Family/Request visit [] Outpatient visit [] Follow-up visit [] Physician referral [] Code/Alert [x] Routine visit [] Staff referral [] Actively dying [] Patient sleeping [x] Family support [] [] Out of room [] Palliative care [] [] Receiving care in room [] Pre-surgical visit [] Trauma [] Long length of stay [] ICU visit [] Other: Relational/Emotional Strength [x] Patient feels connected with others/family/visitors/staff [] Distress [] Loneliness/isolation [] Abandonment Spirituality of Patient [x] Person of Norma [] Attends Orthodox of their Norma [x] Believes in Prayer [] Reads Bible or Gnosticism materials [] There are Spiritual issues to be addressed Controller Mechanic Interventions [x] Prayer [x] Active listening [x] Non-anxious presence [x] Spiritual/emotional support [] Crisis/trauma care [] Spiritual counseling [] Bereavement support [] Provided bereavement packet [] Provided Bible/devotional materials [] Provided toy/stuffed animal, coloring book to patient or family member [] Provided Communion [] Anointing/[place] [] Salvation [x] Completed spiritual assessment [] Other: Impact on Illness or Injury [] Angry [] Fearful [] Anxious [] Often cries [] Exhaustion [] Unable to work [] Unable to attend jain [] Unable to walk/stand [] Unable to read [] Unable to drive [] Unable to eat/drink [] Unable to sleep [] Unable to be with family [] Patient intubated [] Other: Summary Time spent with patient 5 min
[2024-10-07] MEDS: ondansetron 2 mg/ML SDV 2 mL 4 MG IVP (14:21)
--- NOTE | 2024-10-07 15:21 | PM.PN ---
Subjective Subjective: No acute events overnight. Patient denies any nausea or vomiting. States belly pain is still there. Could not tolerate clear liquid diet with episode of vomiting. Vitals/I&O/Wt Last Vital Signs Temp 99.7 F H 10/07/24 11:34 Pulse 74 10/07/24 13:39 Resp 18 10/07/24 14:21 BP 110/68 10/07/24 11:34 Pulse Ox 96 10/07/24 11:34 O2 Del Method Room Air 10/07/24 11:34 O2 Flow Rate 0 10/07/24 07:04 10/07/24 10/07/24 10/07/24 06:59 14:59 22:59 Intake Total 450 / 2039.95 937.5 / 937.5 Balance 450 / 2039.95 937.5 / 937.5 Weight last 48 hrs Weight 67.784 kg Weight 66.996 kg Weight 66.996 kg Weight 73.936 kg Physical Exam Narrative: General: In mild distress because of abdominal pain, AOx3 HEENT: PERRLA, pupils bilaterally equal and reactive Chest: Normal vesicular breath sounds, no added sounds, equal good air entry bilaterally CVS: S1-S2 regular, no murmurs, no tachycardia, no gallops, no rubs Abdomen: Soft, generalized tenderness, guarding all over her abdomen more so in the left upper quadrant, no organomegaly, bowel sounds present Neuro: No focal deficits, no facial deformity, AO x3, power 5/5 in all limbs Data 10/07/24 05:43 10/07/24 05:43 A&P Assessment and plan (1) Abdominal pain: Most likely in setting of alcoholic gastritis. Cannot rule out pancreatitis. Patient has a history of pancreatitis in the past. Lipase level mildly elevated to 79. CT abdomen pelvis with contrast negative for pancreatitis. (2) Acute alcoholic gastritis: Continue with clear liquid diet. When discussing with patient in detail about her multiple small meals. Protonix 40 mg IV twice daily. Zofran as needed. IV fluids normal saline at 75 cc/h. (3) Pancreatitis: Treatment as above. Serial abdominal examination. Morphine 2 mg every 4 hours as needed for pain control (4) Alcohol use: [facility] protocol. Appreciate urine drug screen, alcohol level. Oral thiamine and folic acid. (5) Back injury: Gives recent history of recently kicked in the back while working by an animal and being crushed with a pipe into her belly. Appreciate CT thoracolumbar and chest. Appreciate surgical recommendations. No concerns for acute etiology from injury for now. Plan Febrile episode: Most likely in setting of inflammation from gastritis and mild pancreatitis. Respiratory referral negative. Hold off on antibiotics for now. Full code Protonix OPD prophylaxis Heparin 5000 every 12 hourly for DVT prophylaxis N.p.o. till cleared from surgery. After that clear liquid diet. Attestations Medical Necessity Statement*: Requires further hospitalization for management of nausea vomiting along with abdominal pain in setting of alcoholic gastritis versus pancreatitis Diagnoses Abdominal pain R10.9 Acute alcoholic gastritis K29.20 Pancreatitis K85.90 Alcohol use F10.90 Back injury S39.92XA
[2024-10-07] MEDS: morphine 4 mg/mL SDV 1 mL 1 MG IVP (21:31)
[2024-10-07] MEDS: acetaminophen 325 mg Tablet 650 MG PO (22:42)
[2024-10-08] VITALS: BP 113/64; PULSE 76; RESP 18; TEMP 36.8; O2SAT 97
[2024-10-08 01:53] VITALS: RESP 18
[2024-10-08] MEDS: morphine 4 mg/mL SDV 1 mL 1 MG IVP (01:53)
[2024-10-08 04:00] VITALS: BP 100/55; PULSE 61; RESP 16; TEMP 36.6; O2SAT 96
[2024-10-08 05:26] LABS: Basophils % 0.4 %; Eosinophils # 0.1 10^3/uL (0.0-0.8); Eosinophils % 1.7 %; Lymphocytes # 1.6 10^3/uL (0.8-4.8); Mean Corpuscular HGB Conc 32.8 g/dL (30-55); Mean Corpuscular Hemoglobin 30.9 pg (27-33); Mean Corpuscular Volume 94.1 fl (85-98); Mean Platelet Volume 9.8 fL (7.4-10.4); Monocytes # 0.4 10^3/uL (0.2-0.9); Monocytes % 7.4 %; Neutrophils # 3.19 10^3/uL (1.8-7.7); Neutrophils % 60.1 %; Nucleated Red Blood Cells % 0 %; Platelet Count 171 10^3/cmm (157-399)
[2024-10-08 05:53] LABS: Alanine Aminotransferase 7 U/L (0-33); Albumin Level 3.4 g/dL (3.5-5.2); Alkaline Phosphatase 67 U/L (35-105); Anion Gap 13.5 (5-19); Aspartate Amino Transferase 10 U/L (0-32); Blood Urea Nitrogen 4 mg/dL (6-20); Calcium 8.3 mg/dL (8.5-10.5); Carbon Dioxide 23 mmol/L (22-29); Chloride 105 mmol/L (98-107); Creatinine Clr Calc Pharmacy 192.5556; Globulin 2.3 g/dL (1.3-4.6); Glucose 114 mg/dL (65-115); Osmolality Calculated 284 mOsm/kg (285-295); Potassium 3.5 mmol/L (3.5-5.1); Sodium 138 mmol/L (136-145); Total Bilirubin 0.3 mg/dL (0.15-1.2); Total Protein 5.7 g/dL (6.6-8.7)
[2024-10-08 06:00] VITALS: PULSE 53
[2024-10-08] MEDS: pantoprazole 40 mg SDV IVP (06:23)
[2024-10-08 08:00] VITALS: BP 92/50; PULSE 60; RESP 16; TEMP 36.6; O2SAT 96
[2024-10-08] MEDS: multivitamin therapeutic Tablet 1 TAB PO (08:37)
[2024-10-08] MEDS: folic acid 1 mg Tablet PO (08:37)
[2024-10-08] MEDS: thiamine 100 mg Tablet PO (08:37)
[2024-10-08] MEDS: heparin 5,000 unit/mL INJ 1 mL 5000 UNIT SUBCUT (08:37)
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
[2024-10-08 11:51] VITALS: BP 124/69; PULSE 75; RESP 17; TEMP 36.4; O2SAT 94
--- NOTE | 2024-10-08 11:55 | PC.NURSE ---
Discharge instructions provided to pt. NO questions or concerns voiced at this time. Pt to private vehicle via wheelchair with all belongings.
== END 2024-10-08 11:55 | disposition home or self-care (01) ==
LOC: ER 16:39 → ER IP 16:46 → MEDSURG 18:42
PROVIDERS: Admitting Provider Student in an Organized Health Care Education/Training Program; Emergency Provider Family Medicine; Visit Provider Student in an Organized Health Care Education/Training Program
DX: K29.20 Alcoholic gastritis without bleeding (principal); K85.90 Acute pancreatitis without necrosis or infection, unspecified; F10.90 Alcohol use, unspecified, uncomplicated; S39.92XA Unspecified injury of lower back, initial encounter; W55.22XA Struck by cow, initial encounter; D72.829 Elevated white blood cell count, unspecified
CPT/HCPCS: 0241U; 36415; 71045; 71250; 72128; 72131; 74177; 80053; 80061; 80306; 80307; 81001; 82607; 82746; 83036; 83540; 83550; 83605; 83690; 83735; 84100; 84145; 84443; 84703; 85025; 85610; 85730; 93005; 94664; 96361; 96372; 96374; 96375; 96376; 99285; G0378; J1171; J1644; J2270; J2405; J2470; J3411; J3490; J7030